=== PATIENT | female | born 1995 ===

== ENCOUNTER 2017-03-05 06:44 | Emergency (ER) | payer OTHER ==
[2017-03-05 06:52] VITALS: RESP 18
[2017-03-05] MEDS ORDERED: Emtricitabine-Tenofovir 200 mg-300 mg Tab PO STA ×2 (07:51→07:59)
[2017-03-05] MEDS ORDERED: Emtricitabine-Tenofovir 200 mg-300 mg Tab PO NR (08:00)
[2017-03-05 08:13] LABS: RBC URINE 1 /hpf (0-3); URINE BILIRUBIN NEGATIVE (NEGATIVE); URINE BLOOD NEGATIVE (NEGATIVE); URINE COLOR Yellow (YELLOW); URINE GLUCOSE (UA) NORMAL (Normal); URINE KETONE TRACE mg/dL (NEGATIVE); URINE LEUKOCYTE ESTERASE NEG Leu/uL (Negative); URINE PROTEIN 1+ mg/dL (NEGATIVE); URINE UROBILINOGEN NORMAL mg/dL (0.2-1.0); WBC URINE 1 /hpf (0-5)
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
[2017-03-05] MEDS ORDERED: cefTRIAXone (Rocephin) 250 mg Inj IM STA (09:43)
[2017-03-05 10:33] VITALS: BP 115/65; PULSE 77; TEMP 98
[2017-03-05 16:39] VITALS: O2SAT 99
== END 2017-03-05 10:33 | disposition home or self-care (01) ==
LOC: SUPCPDRO 06:44 → C.ER 06:44
DX: Z04.41 Encounter for examination and observation following alleged adult rape (principal)
CPT/HCPCS: 81001; 84703; 96372; 99285; J0696